=== PATIENT | male | born 1980 | race Caucasian/White ===

== ENCOUNTER 2018-08-29 09:32 | Emergency (ER) | payer BC, OTHER ==
[~2018-08-29] VITALS: Ht 177.8 cm; Wt 90.7 kg
--- NOTE | ~2018-08-29 | EKG ---
[address] [address] [place] [place] [address] ELECTROCARDIOGRAM REPORT Name: JASWINDER SCHULER Room #: [place]#: [id number] Admission: 08/29/18 Attend Phys: Discharge: 08/29/18 Date of : 82 Report #: [id number] THIS REPORT FOR: //name// [facility] ED Test Date: 2018-08-29 Test Time: 09:55:35 Pat Name: JASWINDER SCHULER Department: Room: Gender: [employer] Member: anju : 1980 Requested By: Eveline Smith Order Number: [id number] MD: Raymundo Marcial Measurements Intervals [place] Rate: 62 P: 33 ID: [id number] QRS: 63 QRSD: 89 T: 27 QT: 376 QTc: 382 Interpretive Statements Sinus rhythm Non specific st/t wave changes probable normal early repol pattern No previous ECG available for comparison Electronically Signed On 08-29-2018 13:04:06 SR. MANAGER by Raymundo Marcial [email or web address] <ELECTRONICALLY SIGNED> By: Raymundo Marcial MD 08/29/18 [id number] Raymundo Marcial MD /ANGELA
[2018-08-29 10:36] LABS: ABSOLUTE NEUTROPHILS 4.7 thou/uL (1.4-8.2); BASOPHILS 0.6 % (0.0-2.0); EOSINOPHILS 0.6 % (0.0-3.0); HEMATOCRIT 47.9 % (42.0-52.0); HEMOGLOBIN 16.4 gm/dL (14.0-18.0); LYMPHOCYTES 33.2 % (24.0-44.0); MCH 28.4 pg (26.0-34.0); MCHC 34.2 g/dL (28.0-37.0); MONOCYTES 6.1 % (1.0-8.0); PLATELET COUNT 225 thou/uL (150-400); POLYS 59.5 % (36.0-66.0); RBC 5.78 mil/uL (4.50-6.00); RDW 13.8 % (10.5-14.5); WBC 7.9 thou/uL (4.0-11.0)
[2018-08-29 10:42] LABS: ANION GAP 11 mmol/L (7-16); BUN 17 mg/dL (7-18); CALCIUM 9.4 mg/dL (8.5-10.1); CHLORIDE 103 mmol/L (98-107); CO2 25 mmol/L (21-32); GLUCOSE 92 mg/dL (74-106); POTASSIUM 3.7 mmol/L (3.5-5.1); SODIUM 139 mmol/L (136-145)
[2018-08-29 10:51] LABS: ALBUMIN 4.5 g/dL (3.4-5.0); SGOT 17 U/L (15-37); SGPT 25 U/L (30-65); TOTAL BILIRUBIN 0.6 mg/dL (<0.1-1.0); TROPONIN-I <0.06 ng/mL (<0.06)
[2018-08-29 11:14] VITALS: BP 138/92
== END 2018-08-29 11:39 | disposition home or self-care (01) ==
LOC: ER 09:32
PROVIDERS: Physician Assistant
DX: R55 Syncope and collapse (principal); I10 Essential (primary) hypertension; G43.909 Migraine, unspecified, not intractable, without status migrainosus; Z88.8 Allergy status to other drugs, medicaments and biological substances